=== PATIENT | male | born 1990 | race Caucasian/White ===

== ENCOUNTER 2018-07-04 18:49 | Emergency (ER) | payer MEDICAID, OTHER ==
[2018-07-04] MEDS ORDERED: LET GEL TOPICAL 1 EA SYR TP ONE (19:28)
[2018-07-04] MEDS ORDERED: ACETAMINOPHEN 500 MG TAB ONE (19:42)
[2018-07-04] MEDS ORDERED: ACETAMINOPHEN 500 MG TAB PO ONE (19:43)
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
[2018-07-04 22:12] VITALS: BP 133/87
== END 2018-07-04 22:11 | disposition home or self-care (01) ==
DX: S09.90XA Unspecified injury of head, initial encounter (principal); S50.311A Abrasion of right elbow, initial encounter; S60.511A Abrasion of right hand, initial encounter; V18.4XXA Pedal cycle driver injured in noncollision transport accident in traffic accident, initial encounter; Y93.55 Activity, bike riding; Y92.9 Unspecified place or not applicable; Y99.9 Unspecified external cause status